=== PATIENT | female | born 1990 | race African-American/Black ===

== ENCOUNTER 2019-04-20 12:04 | Emergency (ER) | payer OTHER ==
[~2019-04-20] VITALS: Ht 172.7 cm; Wt 131.5 kg
--- NOTE | 2019-04-20 12:16 | NUR ---
ED Nurse Note: Pt ambulated to ED from home d/t epigastric pain for 3-4 days. Pt states feeling of chest pain yesterday; denies today. Placed on bed, VSS, afebrile on triage.
--- NOTE | 2019-04-20 12:34 | Emergency Room Report ---
History of Present Illness General Chief Complaint: Pain Source: Patient Present Illness HPI 28-year-old female presents to the emergency department complaining of persistent ache in the lower lower rib cage area bilaterally. She currently reports 0 out of 10 severity pain but she describes soreness. Patient states she has been coughing the last 2 to 3 days primarily at nighttime when she is at work. 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 She also reports history of asthma. She denies fevers, chills, or mucus production. She denies runny nose, neck pain/stiffness, chest pain, headache/ photophobia. Patient denies recent travel. She denies any obviously sick contacts. She reports she does not have an inhaler. She reports some relief after taking 400 mg Motrin 1 time but then states her symptoms returned the next day. Denies abdominal pain/burning. Denies hx of GERD. 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 She denies or suspicion of . Pt. is worried she has PNA. Denies recent travel. Denies contact with persons who have tested positive for or are under investigation/quarantine for COVID-19. COVID-19 risk:Travel to affect: No Has patient experienced gutierrez: No Allergies: Coded Allergies: No Known Allergies (Unverified , 04/20/19) Patient History Past Medical History: see triage record Past Surgical History: none Pertinent Family History: none Last Menstrual Period: 04/04/19 Now: No Reviewed Nursing Documentation: PMH: Agreed; PSxH: Agreed Review of Systems All Other Systems: negative except mentioned in HPI Physical Exam Vital Signs Date Time Temp Pulse Resp B/P (MAP) Pulse Ox O2 Delivery O2 Flow Rate FiO2 04/20/19 12:14 98.2 92 20 119/74 (89) 96 Room Air Sp02 EP Interpretation: reviewed, normal General Appearance: no apparent distress, alert, GCS 15, non-toxic Head: normocephalic, atraumatic Eyes: bilateral eye normal inspection, bilateral eye PERRL ENT: hearing grossly normal, normal pharynx, normal voice, TMs + canals normal , uvula midline, moist mucus membranes Neck: full range of motion, no meningismus Respiratory: chest non-tender, lungs clear, normal breath sounds, no respiratory distress, no accessory muscle use, no wheezing, speaking full sentences Cardiovascular #1: regular rate, rhythm Gastrointestinal: normal bowel sounds, non tender, soft, no guarding Musculoskeletal: normal range of motion, gait/station normal, non-tender Neurologic: alert, motor strength/tone normal, oriented x3, sensory intact, responsive, speech normal Psychiatric: judgement/insight normal Lymphatic: no adenopathy Medical Decision Making PA Attestation Dr. Bee is my supervising Physician whom patient management has been discussed with. Diagnostic Impression: Primary Impression: Acute asthmatic bronchitis ER Course 28-year-old female presents to the emergency department complaining of persistent ache in the lower lower rib cage area bilaterally. She currently reports 0 out of 10 severity pain but she describes soreness. Patient states she has been coughing the last 2 to 3 days primarily at nighttime when she is at work. 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 She also reports history of asthma. She denies fevers, chills, or mucus production. She denies runny nose, neck pain/stiffness, chest pain, headache/ photophobia. Patient denies recent travel. She denies any obviously sick contacts. She reports she does not have an inhaler. She reports some relief after taking 400 mg Motrin 1 time but then states her symptoms returned the next day. Denies abdominal pain/burning. Denies hx of GERD. 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 She denies or suspicion of . Pt. is worried she has PNA. Denies recent travel. Denies contact with persons who have tested positive for or are under investigation/quarantine for COVID-19. Ddx considered but are not limited to URI, pneumonia, PE, strep pharyngitis, meningitis, bronchitis/asthma, Viral URI. Vital signs: Pt.is afebrile VS are WNL H&PE are most consistent with bronchitis/asthma exacerbation. This patient is nontoxic in appearance and in no acute distress. She is not currently having any pain and she did not take any medications today. She appears to have a normal amount of energy is alert and oriented. She is not showing signs of respiratory distress. Patient visually appears to be healthy. ORDERS: none required at this time, the diagnosis is clinical ED INTERVENTIONS: -IBU 600mg -I do not identify an emergent condition at this time. With current presentation , pt. is stable for close outpatient follow up and conservative treatment. D/ w pt. to return promptly to ED with worsening or new symptoms.- Pt. verbalizes' understanding and agreement with proposed treatment plan.proposed treatment plan. DISCHARGE: At this time pt. is stable for d/c to home. Will provide printed patient care instructions, and any necessary prescriptions. Care plan and follow up instructions have been discussed with the patient prior to discharge. Last Vital Signs Date Time Temp Pulse Resp B/P (MAP) Pulse Ox O2 Delivery O2 Flow Rate FiO2 04/20/19 12:14 98.2 92 20 119/74 (89) 96 Room Air Disposition: HOME, SELF-CARE Scripts Ibuprofen* (MOTRIN*) 600 Mg Tablet 600 MG ORAL THREE TIMES A DAY, #30 TAB 0 Refills Prov: Qian Angel 04/20/19 Albuterol Sulfate* (ALBUTEROL SULFATE MDI*) 8.5 Gm Hfa.aer.ad 2 PUFF INH Q4H, #1 INH 0 Refills Prov: Qian Angel 04/20/19 Departure Forms: Return to Work Return to Work Date: Apr 21, 2019 Work Restrictions: None Return to Full Activity: Apr 21, 2019 Patient Instructions: Acute Bronchitis, [id number] Additional Instructions: Take medications as directed. Follow up with a Primary Care Provider in 3-5 days, even if your symptoms have resolved. --Please review list of primary care clinics, if you do not already have a primary care provider Return sooner to ED if new symptoms occur, or current symptoms become worse. - Please note that this Emergency Department Report was dictated using [employer] blender helper technology software, occasionally this can lead to erroneous entry secondary to interpretation by the dictation equipment. Qian Angel Apr 20, 2019 12:34
[2019-04-20 12:42] VITALS: BP 119/74
[2019-04-20] MEDS ORDERED: ALBUTEROL SULF8.5 GM INH (13:01)
[2019-04-20] MEDS ORDERED: IBUPROFEN600 MG ORAL (13:01)
[2019-04-20 13:10] VITALS: BP 120/74
--- NOTE | 2019-04-20 13:10 | NUR ---
ER DISCHARGE NOTE: Patient is cleared to be discharged per ERMD, pt is aox4, on room air, with stable vital signs. pt was given dc and prescription instructions, pt was able to verbalize understanding, pt id band removed. pt is able to ambulate with steady gait. pt took all belongings.
== END 2019-04-20 13:10 | disposition home or self-care (01) ==
LOC: EMR 12:49
DX: J45.909 Unspecified asthma, uncomplicated (principal)
CPT/HCPCS: 99282